=== PATIENT | male | born 1960 | race Caucasian/White ===

== ENCOUNTER → 2016-11-14 | Outpatient (CLI) | payer OTHER, BC | LOC: GMAJ 15:31 | PROVIDERS: ATTEND Family Medicine | DX: Z12.5 Encounter for screening for malignant neoplasm of prostate (principal) ==

== ENCOUNTER → 2017-04-09 | Outpatient (CLI) | payer OTHER | END | disposition home or self-care (01) | LOC: LAB.O 09:59 | PROVIDERS: ATTEND Surgery | DX: E56.9 Vitamin deficiency, unspecified (principal); R53.83 Other fatigue; R53.81 Other malaise; R12 Heartburn; R06.02 Shortness of breath; R60.9 Edema, unspecified; I10 Essential (primary) hypertension ==

== ENCOUNTER → 2017-08-16 | Outpatient (CLI) | payer OTHER | END | disposition home or self-care (01) | LOC: LAB.O 08:59 | PROVIDERS: ATTEND Surgery | DX: I10 Essential (primary) hypertension (principal); E56.9 Vitamin deficiency, unspecified; R53.83 Other fatigue; R53.81 Other malaise; R12 Heartburn; R06.02 Shortness of breath; R60.9 Edema, unspecified; G47.33 Obstructive sleep apnea (adult) (pediatric) ==

== ENCOUNTER → 2018-02-05 | Outpatient (CLI) | payer OTHER | END | disposition home or self-care (01) | LOC: GMAJ 12:10 | PROVIDERS: ATTEND Family Medicine | DX: I10 Essential (primary) hypertension (principal) ==

== ENCOUNTER → 2018-09-25 | Outpatient (CLI) | payer OTHER | LOC: GMAJ 16:41 | PROVIDERS: ATTEND Family Medicine | DX: E53.9 Vitamin B deficiency, unspecified (principal) ==

== ENCOUNTER → 2019-04-01 | Outpatient (CLI) | payer OTHER | LOC: GMAJ 10:38 | PROVIDERS: ATTEND Family Medicine | DX: Z12.5 Encounter for screening for malignant neoplasm of prostate (principal); I10 Essential (primary) hypertension ==

== ENCOUNTER → 2020-09-21 | Outpatient (CLI) | payer OTHER | LOC: GMAJ 10:37 | PROVIDERS: ATTEND Family Medicine | DX: E53.9 Vitamin B deficiency, unspecified (principal); I10 Essential (primary) hypertension ==